=== PATIENT | male | born 2000 | race Caucasian/White ===

== ENCOUNTER 2020-05-27 09:31 | Outpatient (CLI) | payer OTHER, SELFPAY ==
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
--- NOTE | ~2020-05-27 | XR_ITS ---
EXAMINATION: XR abdomen obstructive series EXAM DATE: 05/27/2020 09:58 INDICATION: Upper anterior left-sided abdominal mass for 3 years. TECHNIQUE: Frontal upright projection of the upper abdomen, frontal projection of the lower abdomen f or interpretation. There is no prior study for comparison. FINDINGS: There is expected amount of colonic stool and gas. No small bowel dilation, nonobstructiv e bowel gas pattern. There are no suspicious calcifications identified. There is no organomegaly suspected. Old left 6th-8th rib fractures. There is no free intraperitoneal air. The lung bases a re clear. The soft tissue is unremarkable. IMPRESSION: Old left 6th-8th rib fractures. Reviewed, dictated and finalized at location B.
== END 2020-05-27 09:32 | disposition home or self-care (01) ==
PROVIDERS: PCP Family Medicine; Visit Provider Family Medicine
DX: R06.00 Dyspnea, unspecified (principal)
CPT/HCPCS: 71046; 74019

== ENCOUNTER 2025-04-30 18:06 | Emergency (ER) | payer OTHER, SELFPAY ==
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
--- NOTE | ~2025-04-30 | XR_ITS ---
EXAMINATION: XR chest 2V DATE: 04/30/2025 18:52 INDICATION: Rib cage pain TECHNIQUE: PA and lateral views of the chest were obtained. COMPARISON: Chest radiograph dated 05/27/2020 FINDINGS: Stable appearance of multiple old healed posterior and lateral left rib fracture deformities with adj acent mild pleural parenchymal scarring at the lateral left mid to lower lung zone. No new airspace o pacities, pulmonary edema, pleural effusion or pneumothorax. The cardiomediastinal silhouette is norm al. Chronic minimal likely intra-articular wedging of a few lower thoracic vertebral bodies. IMPRESSION: 1. No acute cardiopulmonary disease. 2. Stable appearance of pleural parenchymal scarring at the lateral left mid to lower lung and multip le associated old healed left-sided rib fracture deformities. Reviewed, dictated and finalized at location A. IMPRESSION: 1. No acute cardiopulmonary disease. 2. Stable appearance of pleural parenchymal scarring at the lateral left mid to lower lung and multiple associated old healed left-sided rib fracture deformit ies.
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
--- NOTE | ~2025-04-30 | CT_ITS ---
EXAMINATION: CT diagnostic chest wo con DATE: 04/30/2025 21:24 INDICATION: Type III vs Type V AC joint inj based on xray; TECHNIQUE: Computed tomography (CT) of the chest was performed without intravenous contrast. Addition al 3D reconstructions utilizing coronal maximum intensity projection (MIP) were performed. Automated exposure control and iterative reconstruction technique were employed. The dose-length product was 63 9.11 mGy-cm. COMPARISON: None FINDINGS: Multiple old healed lateral and posterior left rib fractures. There is linear suture line along linea r band of atelectasis/scarring along the anterolateral margin of the left lower lobe. Small calcified nodule region of atelectasis in the left lower lobe consistent with old granulomatous disease. Right lung is clear. No pneumonia, pulmonary edema, pleural effusion or pneumothorax. Heart size is normal . No pericardial effusion. Thoracic aorta is normal in caliber. No pathologically enlarged thoracic l ymphadenopathy. Mild bilateral gynecomastia. 2.1 cm macroscopic fat attenuation left adrenal myelolip jeanna. Type III acromioclavicular joint separation. IMPRESSION: 1. No acute cardiopulmonary disease. 2. Type III right acromioclavicular joint separation. Reviewed, dictated and finalized at location A.
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
--- OUTSIDE RECORDS SUMMARY | 2025-04-30 18:07 | XMS_ITS | Clinical Summary ---
Author Organization [facility] Address [address] [place] [address] Care Team Providers Care Tire Buster Name Role Phone Unknown, Notinfile Primary Care Provider Unavail able Allergies No known active allergies Medical History Medical History Date Comments Hypertension Social History Tobacco Use Types Packs/Day Years Used Date Smoking Tobacco: Never Assessed Personal Safety Answer Date Recorded Have you ever been in or are you currently in a harmful physical or emotional relationship or is someone making you feel afraid or unsafe? 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 Gender Identity Not on file Sexual Orientation Not on file Obstetrics History Last Filed Vital Signs Vital Sign Reading Time Taken Comments Blood Pressure 141/92 03/15/2023 2:20 PM CDT Pulse 63 03/15/2023 2:20 PM CDT Temperature 36.6 C (97.9 F) 03/15/2023 10:46 AM CDT Respiratory Rate 16 03/15/2023 2:20 PM CDT Oxygen Saturation 98% 03/15/2023 2:20 PM CDT Inhaled Oxygen Concentration - - Weight 113.8 kg (250 lb 14.1 oz) 2022 10:52 AM CDT Height 170.2 cm (5' 7) 03/15/2023 10:4 6 AM CDT Body Mass Index 39.29 03/15/2023 10:46 AM CDT Plan of Treatment Health Maintenance Due Date Last Done Comments Depression Screening 1999 Hepatitis C Screening 1999 DTaP/Tdap/Td Vaccine (1 - Tdap) 2010 Varicella Vaccines (1 of 2 - 13+ 2-dose series) 2012 HPV Vaccines (1 - Male 3-dos e series) 2014 Hepatitis B Screening 2017 Regular Well Visit/Exam 18-64 2017 Influenza Vaccine (#1) 2025 Pneumococcal vaccine <65 Aged Out No longer eligible based on patient's age to complete this topic Insurance [facility] Care Teams Tire Buster Relationship Specialty Start Date End Date Unknown, Notinfile PCP - General 03/15/23
--- OUTSIDE RECORDS SUMMARY | 2025-04-30 18:07 | XMS_ITS | Referral Summary ---
Author Organization [facility] Address [address] [place] [address] Care Team Providers Care Project Intern Name Role Phone Unknown, Notinfile Primary Care Provider Unavail able Allergies No known active allergies Social History Tobacco Use Types Packs/Day Years Used Date Smoking Tobacco: Never Assessed Personal Safety Answer Date Recorded Have you ever been in or are you currently in a harmful physical or emotional relationship or is someone making you feel afraid or unsafe? 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
--- OUTSIDE RECORDS SUMMARY | 2025-04-30 18:08 | XMS_ITS | Data Portability ---
Author Organization [facility], Main Office Address [address] [place] [address] Assessment No assessment recorded. Plan of Treatment Reminders Order Date Submit Date Provider Last Modified By Organization Details Last Modified Time Details Appointments None recorded. Lab CMP, serum or plasma [address] (Lab), [address] [place], [address], 3 11:07:22 lipid panel, serum [address] (Lab), [address] [place], [address], 3 11:07:55 HbA1c (hemoglobin A1c), blood [address] (Lab), [address] [place], [address], 3 11:08:34 urinalysis, dipstick [address] [address], [place], [address], 3 11:05:22 urinalysis complete, reflex culture [address] (Lab), [address] [place], [address], 3 11:09:14 testosteron e, free + total, serum [address] (Lab), [address] [place], [address], 3 11:07:38 TSH, serum, reflex free T4 [address] (Lab), [address] [place], [address], 3 11:08:23 Referral psychiatris t referral - Please call patient to schedule an appointment . Thank you. 2023 024 [email or web address] Rosa Mary Pmhnp, [address], [address], 4 15:57:59 Procedures None recorded. Surgeries None recorded. Imaging None recorded. Medication Orders alprazolam 1 mg tablet 2023 024 [facility], [address] [place], [place], [id number], 4 11:16:00 hydroxyzine HCl 25 mg tablet 2023 024 [facility], [address] [place], [place], [id number], 4 11:15:59 sildenafil 50 mg tablet 2022 023 [facility] #[facility]36, [address] [place], [place], [id number], 3 10:16:31 alprazolam 1 mg tablet 2022 023 [facility] #73734, [address] [place], [place], [id number], 3 14:22:33 Patient TargetsNo targets recorded. Patient InstructionsNo instructions recorded. Reason for Referral Psychiatrist Referral for An xiety anxiety Please call patient to schedule an appointment. Thank you. Referring Physician: Rojelio Johns, Family Medicine, Encounter Date: 03/27/2024 Results Created Date Observation Date Name Description Value Unit Range Abnormal Flag Note LastModifiedBy Organization Detail LastModifiedTime 03/12/2003/12/2023 urina lysis , dipst ick Leukocytes (reference range: negative jimbo/ l) Negati ve Not Available [address], [place], [address], 03/12/2023 10:18:07 03/12/20 23 03/12/2023 urina lysis , dipst ick Nitrite (reference rage: negative mg/dl) negati ve Not Available [address], [place], [address], 03/12/2023 10:18:07 03/12/20 23 03/12/2023 urina lysis , dipst ick Urobilinogen (reference range: 0.2-1 mg/dl) 0.2 Not Available [address], [place], [address], 03/12/2023 10:18:07 03/12/20 23 03/12/2023 urina lysis , dipst ick Protein (reference range: negative mg/dl) Trace Not Available [address], [place], [address], 03/12/2023 10:18:07 03/12/20 23 03/12/2023 urina lysis , dipst ick pH (reference range: 5-7) 5.5 Not Available [address], [place], [address], 03/12/2023 10:18:07 03/12/20 23 03/12/2023 urina lysis , dipst ick Blood (reference range: negative Nehemias/ l) Negati ve Not Available [address], [place], [address], 03/12/2023 10:18:07 03/12/20 23 03/12/2023 urina lysis , dipst ick Specific [place] (reference range: 1.005-1.030) 1.030 Not Available [address], [place], [address], 03/12/2023 10:18:07 03/12/20 23 03/12/2023 urina lysis , dipst ick Ketone (reference range: negative mg/dl) Negati ve Not Available [address], [place], [address], 03/12/2023 10:18:07 03/12/20 23 03/12/2023 urina lysis , dipst ick Bilirubin (reference range: negative mg/dl) Negati ve Not Available [address], [place], [address], 03/12/2023 10:18:07 03/12/20 23 03/12/2023 urina lysis , dipst ick Glucose (reference range: negative mg/dl) Negati ve Not Available [address], [place], [address], 03/12/2023 10:18:07 03/12/20 23 03/12/2023 urina lysis , dipst ick Appearance Clear Not Available [address], [place], [address], 03/12/2023 10:18:07 03/12/20 23 03/12/2023 urina lysis , dipst ick Color Yellow Not Available [facility] [address], [place], [address], 03/12/2023 10:18:07 Result Notes None recorded. Problems Name Problem SNOMED Code Status Onset Date Resolution Date Notes Provider Name and Address Organization Details Recorded Time Hypertensive disorder 98711539 Active 2019 Not Available [employer] 3 19:29:19 Anxiety 53838873 Active 2022 CECY Estrada [address], [address], [place], [address] , [email or web address] 3 16:10:40 Erectile dysfunction 806931823 Active 2022 CECY Estrada [address], [address], [place], [address] , [email or web address] 3 10:04:24 Increased frequency of urination 894885117 Active 2022 CECY Estrada [address], [address], [place], [address] , [email or web address] 3 10:18:02 Male hypogonadism 71772168 Active 2022 KEITH Whitman [address], [address], [place], [address] , [email or web address] 3 10:12:21 Notes: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 Medical Equipment None Reported. Allergies No known drug allergies Medications Name Sig Start Date Stop Date Status Note LastModified by Organization Details LastModified Time quetiapine 25 mg tablet 11/08 completed Not Available Not Available Not Available cyclobenzap rine 10 mg tablet 11/08 completed Not Available Not Available Not Available buspirone 5 mg tablet 11/08 completed Not Available Not Available Not Available polyethylen e glycol 3350 17 gram oral powder packet 11/08 completed Not Available Not Available Not Available sildenafil 50 mg tablet TAKE 1 TABLET BY MOUTH EVERY DAY active Not Available Not Available No t Available alprazolam 1 mg tablet TAKE 1 TABLET BY MOUTH THREE TIMES DAILY NEEDED active Not Available Not Available No t Available benzonatate 200 mg capsule Take 1 capsule 3 times a day by oral route as needed for 10 days. 04/25 completed Not Available Not Available Not Available acetaminoph en 300 mg-codeine 30 mg tablet 11/08 completed Not Available Not Available Not Available sulfamethox azole 800 mg-trimetho prim 160 mg tablet 01/30 completed Not Available Not Available Not Available aspirin 81 mg tablet,efren yed release 11/08 completed Not Available Not Available Not Available tramadol 50 mg tablet 11/08 completed Not Available Not Available Not Available losartan 100 mg-hydrochl orothiazide 25 mg tablet TAKE 1 TABLET BY MOUTH EVERY DAY 03/12 completed Not Available Not Available Not Available alprazolam 0.5 mg tablet Take 1 tablet every day by oral route as needed. active Not Available Not Available No t Available propranolol 10 mg tablet 1 tab PO daily active Not Available Not Available No t Available amlodipine 10 mg tablet TAKE 1 TABLET BY MOUTH ONCE DAILY active Not Available Not Available No t Available buspirone 10 mg tablet TAKE 1 TABLET BY MOUTH EVERY 8 HOURS NEEDED FOR ANXIETY active Not Available Not Available No t Available promethazin e 25 mg tablet Take 1 tablet every 4 hours by oral route as needed. active Not Available Not Available No t Available hydroxyzine HCl 25 mg tablet Take 1 tablet 3 times a day by oral route as needed for 90 days. active Not Available Not Available No t Available lisinopril 40 mg tablet Take 1 tablet every day by oral route. active Not Available Not Available No t Available losartan 100 mg tablet TAKE 1 TABLET BY MOUTH EVERY DAY active Not Available Not Available No t Available fluoxetine 20 mg capsule Take 1 capsule every day by oral route. active Not Available Not Available No t Available sertraline 50 mg tablet Take 1 tablet every day by oral route. 11/08 completed Not Available Not Available Not Available amoxicillin 875 mg-potassiu m clavulanate 125 mg tablet TAKE 1 TABLET BY MOUTH EVERY 12 HOURS FOR 5 DAYS 04/25 completed Not Available Not Available Not Available buspirone 15 mg tablet bid 02/02 completed Not Available Not Available Not Available oxycodone 5 mg tablet TK 1 TO 3 TS PO Q 4 H 11/08 completed Not Available Not Available Not Available escitalopra m 5 mg tablet TAKE 1 TABLET BY MOUTH EVERY DAY IN THE MORNING active Not Available Not Available No t Available Mucinex DM 60 mg-1,200 mg tablet,exte nded release 12 hr Take per package instructi ons 04/25 completed Not Available Not Available Not Available Senexon-S 8.6 mg-50 mg tablet 11/08 completed Not Available Not Available Not Available Xarelto 15 mg tablet TK 1 T PO AT 6AM AND AGAIN AT 6PM 11/08 completed Not Available Not Available Not Available Xarelto 20 mg tablet 11/08 completed Not Available Not Available Not Available OxyContin 10 mg tablet,emre h resistant,e xtended release TK 1 T PO TID 11/08 completed Not Available Not Available Not Available Vitals Date Recorded Body height Body mass index (BMI) Body weight Body temperature Oxygen saturation Oxygen saturation in Arterial blood by Pulse oximetry Heart rate Systolic And Diastolic Provider Name and Address Organization Details Last Updated DateTime 3 170.18 cm 39.8 kg/m2 877872. 46 g 98.3 [degF] 98 % 98 % 76 /min 130/70 mm[Hg] Janki Lunsford CMA [facility] [employer] 3 10:01:54 Date Recorded Body height Provider Name an d Address Organization Details Last Updated DateTime 03/17/2024 170.18 cm Hudson Chapman RN [facility] [employer] 03/17/2024 10:41:43 Date Recorded Body height Body mass index (BMI) Body weight Body temperature Heart rate Oxygen saturation Oxygen saturation in Arterial blood by Pulse oximetry Systolic And Diastolic Provider Name and Address Organization Details Last Updated DateTime 4 170.18 cm 39.2 kg/m2 369909. 09 g 98.2 [degF] 86 /min 96 % 96 % 158/96 mm[Hg] Chelsea Smith RN [facility] [employer] 4 10:57:26 Date Recorded Body height Body mass index (BMI) Body weight Body temperature Heart rate Oxygen saturation Oxygen saturation in Arterial blood by Pulse oximetry Systolic And Diastolic Provider Name and Address Organization Details Last Updated DateTime 3 170.18 cm 40.7 kg/m2 977556. 02 g 98.1 [degF] 70 /min 97 % 97 % 140/86 mm[Hg] Janki Lunsford CMA [employer] [facility] 3 14:07:48 Date Recorded Body height Body mass index (BMI) Body weight Body temperature Heart rate Oxygen saturation Oxygen saturation in Arterial blood by Pulse oximetry Systolic And Diastolic Provider Name and Address Organization Details Last Updated DateTime 3 170.18 cm 39.9 kg/m2 104069. 05 g 97.8 [degF] 87 /min 96 % 96 % 146/92 mm[Hg] Sherly Partida RN [facility] 3 10:03:48 Social History Question Answer Notes LastModified by Organizat ion Details LastModified Time Tobacco Smoking Status Never Smoker Eve William cardenas [facility] [employer] [facility] 04/01/2023 14:02:17 Do You Have An Advance Directive? No [id number] Information not available 12/05/2022 Do You Wear A Helmet When Biking? Yes [email or web address] Information not available 04/01/2023 What Is Your Code Status? Full Code [email or web address] Information not available 04/01/2023 In The 14 Days Before Symptom Onset, Have You Had Close Contact With A Laboratory-confir med COVID-19 While That Case Was Ill? No [email or web address] Information not available 04/01/2023 In The 14 Days Before Symptom Onset, Have You Had Close Contact With A Person Who Is Under Investigation For COVID-19 While That Person Was Ill? No [email or web address] Information not available 04/01/2023 What Type Of Diet Are You Following? REGULAR [id number] Information not available 12/05/2022 Which Illicit Or Recreational Drugs Have You Used? Marijuana [email or web address] Information not available 04/01/2023 Have There Been Any Changes To Your Family Or Social Situation? No [email or web address] Information no t available 04/01/2023 Are There Any Guns Present In Your Home? Yes [email or web address] Information not available 04/01/2023 Do You Use Insect Repellent Routinely? Yes [email or web address] Information not available 04/01/2023 Where Do You Live? SingleLevelHouse Information not available 04/01/2023 Do You Have A Medical Power Of Wall Taper Helper? No [email or web address] Information not available 04/01/2023 Do You Have Any Pets? Yes [email or web address] Information not available 04/01/2023 What Is Your Relationship Status? Domestic Partner [id number] Information not available 12/05/2022 Do You Use Your Seat Belt Or Car Seat Routinely? Yes [email or web address] Information not available 04/01/2023 Do You Have Smoke And Carbon Monoxide Detectors In Your Home? Yes [email or web address] Information not available 04/01/2023 Are You Passively Exposed To Smoke? No [email or web address] Information no t available 04/01/2023 Are There Any Smokers In Your House? No [email or web address] Information not available 04/01/2023 Do You Participate In Social Media? Yes [email or web address] Information not available 04/01/2023 Do You Use Sunscreen Routinely? No [email or web address] Information not available 04/01/2023 Have You Recently Traveled Abroad? No [email or web address] Information not available 04/01/2023 Are You Currently In School? No [email or web address] Information not available 04/01/2023 Do You Have Any Dietary Restrictions? No [email or web address] Information not available 04/01/2023 Sex: Unknown Functional Status Question Answer Note LastModified by Organizat ion Details LastModified Time Do you use any illicit or recreational drugs? Yes [email or web address] Information not available 04/01/2023 Do you or have you ever used any other forms of tobacco or nicotine? No [email or web address] Information not available 04/01/2023 What is your level of alcohol consumption? Occasional [id number] Information not available 12/05/2022 What is your exercise level? Occasional [id number] Information not available 12/05/2022 Mental Status Question Answer Note LastModified by Organization D etails LastModified Time Do you feel stressed (tense, restless, nervous, or anxious, or unable to sleep at night)? [id number] Information not available 04/01/2023 Family History Relationship Description Onset Age of this Age Resolved Age Notes LastModified by Organization Details LastModified Time Paternal Grandmother Hypertensive disorder [id number] Not available 12/05/2022 19:28:24 Medical History No medical history recorded. Past Encounters Encounter ID Performer Location Encounter Start Date Encounter Closed Date Diagnosis/Indication Diagnosis SNOMED-CT Code Diagnosis ICD10 Code Diagnosis Note [id number] Lilli Arteaga MD [facility] Primary [facility] [place] [address] [place] [address] 05/08/2021 00:00:00 05/08/2021 12:10:37 [id number] CECY Estrada [facility] Primary [facility] [place] [address] [place] [address] 06/28/2021 00:00:00 06/28/2021 10:07:35 [id number] CECY Estrada [facility] Primary [facility] [place] [address] [place] [address] 07/03/2021 00:00:00 07/03/2021 09:29:28 [id number] CECY Estrada [facility] Primary [facility] [place] [address] [place] [address] 07/18/2021 00:00:00 07/18/2021 09:19:25 [id number] Lilli Arteaga MD [facility] Primary [facility] [place] [address] [place] [address] 12/12/2021 00:00:00 12/12/2021 10:38:59 [id number] CECY Estrada [facility] Primary [facility] [place] [address] [place] [address] 09/04/2022 00:00:00 09/04/2022 11:33:15 [id number] CECY Estrada [facility] Primary [facility] [place] [address] [place] [address] 12/04/2022 00:00:00 12/04/2022 10:42:36 [id number] Lilli Arteaga MD [facility] Primary Care [place] [address] [place] [address] 03/12/2023 09:56:56 03/12/2023 10:45:07 Anxiety 20965397 F41.9 Stable.Con tinue alprazolam TID as needed.UDS up to date.F/u 3 months. Hypertensive disorder 38 862504 I10 Has been diligent with taking medication over last 2 weeks. Continue Losartan 100mg daily. He is also motivated to work on weight loss. Recheck labs today. Erectile dysfunction 860 806767 F52.21 New problem.Tr ouble achieving/ maintainin g erection, no trouble with ejaculatio n.Will get labs for initial evaluation . Increased frequency of urination 569045689 R35.0 Denies any concern for STD.Has been increasing water intake. [id number] Lilli Arteaga MD [facility] Primary Care [facility] [address] [place] [address] 04/01/2023 14:01:51 04/01/2023 16:19:52 Anxiety 20300777 F41.9 Stable. Feeling much better.Con tinue alprazolam TID as needed.UDS up to date.F/u 3 months. Hypertensive disorder 38 683888 I10 Labs wnl.He stopped his losartan because he states it was causing his erectile dysfunctio n and urinary problems. He is not willing to take medication so I have advised him to at least monitor it on a regular basis. Erectile dysfunction 860 923583 F52.21 Testostero ne normal.He states he stopped his blood pressure medication and since then he thinks it improved his symptoms. Will hold off any additional work-up. [id number] Lilli Arteaga MD [facility] Primary Care [facility] [address] [place] [address] 06/18/2023 09:49:59 06/18/2023 10:25:25 Hypertensive disorder 43968269 I10 Chronic, not well controlled Pt encouraged to continue with losartan 100mg daily and continue to monitor bps at home. Sildenafil for ED should also help lower bps. Erectile dysfunction 860 737609 F52.21 ChronicMay be secondary to poorly controlled htn or medication s/e. If insurance does not cover sildenafil /tadalafil , will try to get testostero ne supplement ation. Male hypogonadism 895742 06 E29.1 ChronicWhi le pts testostero ne levels are technicall y in the normal range. They are at the very low end of normal. May need to consider replacemen t therapy. Trying to conceive [id number] Z31.9 [id number] Rojelio Johns NATTY [facility] Primary Care Alecia [facility]oll[facility]worth [address] [facility] [address] [place] [address] 03/17/2024 10:33:44 03/17/2024 10:58:10 [id number] Rojelio Johns KEITH-Marsha [facility] Alecia [facility] [address] [facility] [address] [place] [address] 03/27/2024 10:48:24 03/27/2024 13:54:31 Erectile dysfunction 131697314 F52.21 noting sexual anxiety/ED symptoms Anxiety 45064198 F41.9 Health Concerns Section Related Observation LastModified by Organization Detai ls LastModified Time None Recorded Concern Status LastModified by Organization Details LastModified Time None Recorded Advance Directives Directive N: Payers Insurance Date Sequence Insurance Name Policy Number Policy Sanders Covered Member ID Sanders Member ID Guarantor Name 07/01/2024 1 [facility] ON OR AFTER 04/06/21 (MEDICAID REPLACEMENT - HMO) Dion Wright [id number] Dion Wright Notes Date Note Type Note Provider Name and Address Organization Details Recorded Time 03/12/2023 text/html Pt. here to follow up on anxiety/med check visit. He is also noticing difficulty with erectile dysfunction, states he has been having trouble achieving an erection for the last 2 weeks. He has also noticed pressure in the pelvic area and feels like it is hard to pee but feels like he needs too. Denies any pain in the testicles. No trouble with ejaculation, only erection. He has been trying to eat better and exercise more. Keeping blood pressure under better control. CECY Estrada [address] [place] [address], [place], [address], [facility] 03/12/2023 12:04:51 04/01/2023 text/html Pt. here for routine follow-up/lab review. He states he is feeling much better. He stopped blood pressure medication which he thinks was causing his side effects as it all started after he was taking it consistently. CECY Estrada [address], [address], [place], [address], [employer] [facility] 04/01/2023 14:23:53 06/18/2023 text/html 1. Pt in office with son for 3 month f/u appt. Pt states he started taking bp medication again about 3 weeks ago b/c he noticed his bps were going up. States he hasn't been able to get it below 130s/80s. Reports some HAs and chest discomfort. States he stopped taking the bp meds b/c he thought it was causing his ED.2. Pt states that ED hasn't been getting much better. States he is having trouble maintaining an erection. States they are trying to conceive. KEITH Whitman [address], [address], [place], [address], [email or web address] [facility] 06/18/2023 18:51:08 03/27/2024 text/html pt is here for med f/u NATTY Pyle [address], [address], [place], [address], [email or web address] [facility] 03/27/2024 11:16:32
[2025-04-30 18:09] VITALS: BP 181/110; PULSE 58; RESP 17; TEMP 36.8; O2SAT 100
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
[2025-04-30 19:37] VITALS: BP 153/107; PULSE 66; RESP 17; TEMP 36.8; O2SAT 96
[2025-04-30 19:56] LABS: Add Urine Microscopic? YES; Appearance Urine Clear (Clear); Glucose Urine UA Negative (Negative); Leukocyte Esterase Ur Trace LEU/UL (Negative); Nitrate Urine Negative (Negative); Non Pathogenic Casts 0-2; Specific Grav Ur 1.033 (1.001-1.035)
--- OUTSIDE RECORDS SUMMARY | 2025-04-30 20:51 | XMS_ITS | Clinical Summary ---
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
--- OUTSIDE RECORDS SUMMARY | 2025-04-30 20:51 | XMS_ITS | Referral Summary ---
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
[2025-04-30] MEDS: HYDROcodone/acetaminophen (*CRX) 5-325 MG TABLET 1 TAB PO (20:58)
--- NOTE | 2025-04-30 22:10 | PC.NURSE ---
Pt refuses both tetanus and Toradol injections d/t not wanting to be poked by needle. EDP Dr. Crow made aware.
[2025-04-30] MEDS: diazePAM (*CRX) 5 MG TABLET PO (22:20)
[2025-04-30 23:03] VITALS: BP 148/95; PULSE 62; RESP 16; TEMP 36.7; O2SAT 97
== END 2025-04-30 23:04 | disposition home or self-care (01) ==
PROVIDERS: Registered Nurse; Emergency Provider Student in an Organized Health Care Education/Training Program
DX: S00.01XA Abrasion of scalp, initial encounter (principal); S43.101A Unspecified dislocation of right acromioclavicular joint, initial encounter; S80.211A Abrasion, right knee, initial encounter; Z86.73 Personal history of transient ischemic attack (TIA), and cerebral infarction without residual deficits; Z86.718 Personal history of other venous thrombosis and embolism; K02.9 Dental caries, unspecified; M47.816 Spondylosis without myelopathy or radiculopathy, lumbar region; M47.814 Spondylosis without myelopathy or radiculopathy, thoracic region; G93.89 Other specified disorders of brain; V00.131A Fall from skateboard, initial encounter; Y93.51 Activity, roller skating (inline) and skateboarding
CPT/HCPCS: 70450; 70486; 71046; 71250; 72125; 72128; 72131; 73030; 81001; 90471; 99284; A4565; A9270